=== PATIENT | male | born 1970 | race Caucasian/White ===

== ENCOUNTER 2021-11-18 11:04 | Emergency (ER) | payer SELFPAY | END 2021-11-18 13:10 | disposition home or self-care (01) | LOC: MADERS 11:04 | DX: M25.551 Pain in right hip (principal); G89.29 Other chronic pain; R01.1 Cardiac murmur, unspecified; F17.200 Nicotine dependence, unspecified, uncomplicated ==

== ENCOUNTER 2022-02-12 20:22 | Emergency (ER) | payer OTHER, BC ==
[~2022-02-12 20:22] MED LIST: Iopamidol 370 76% 100 ML VIAL ONE
[2022-02-12 20:55] LABS: #Basophils 0.2 thou/uL (0.0-0.2); #Eosinphils 0.5 thou/uL (0.0-0.7); #Neutrophils 5.1 thou/uL (1.40-6.50); %Eosinophils 5.4 % (0.0-10.0); %Lymphocytes 30.6 % (21.0-51.0); %Monocytes 10.1 % (0.0-10.0); Hemoglobin 11.4 g/dL (14.0-18.0); Mean Corpuscular Hemoglobin 33.9 pg (27.0-31.0); Mean Corpuscular Volume 99.7 fL (78.0-98.0); Mean Platelet Volume 7.6 fL (7.4-10.4); Platelet Count 180 thou/uL (130-400); RBC Distribution Width 12.9 % (11.5-14.5); Red Blood Cell (RBC) Count 3.36 mill/uL (4.70-6.10); White Blood Cell (WBC) Count 9.7 thou/uL (4.8-10.8)
[2022-02-12 21:10] LABS: Alcohol 295 mg/dL (Less than 10); Anion Gap 17 mmol/L (10-20); BUN (Urea Nitrogen) 18 mg/dL (8.4-25.7); Calc. Creatinine Clearance 0 mL/min (70-130); Calcium 10.1 mg/dL (7.8-10.44); Carbon Dioxide 24 mmol/L (22-29); Chloride 109 mmol/L (98-107); Estimated GFR 59; Glucose 128 mg/dL (70-105); Potassium 4.3 mmol/L (3.5-5.1); Sodium 146 mmol/L (136-145)
[2022-02-12] MEDS ORDERED: Boostrix 0.5 ML (Tdap) VIAL ONE (21:52)
== END 2022-02-12 22:12 | disposition home or self-care (01) ==
LOC: MADERS 20:22
DX: S43.402A Unspecified sprain of left shoulder joint, initial encounter (principal); S46.912A Strain of unspecified muscle, fascia and tendon at shoulder and upper arm level, left arm, initial encounter; S61.212A Laceration without foreign body of right middle finger without damage to nail, initial encounter; S00.03XA Contusion of scalp, initial encounter; S40.012A Contusion of left shoulder, initial encounter; S80.812A Abrasion, left lower leg, initial encounter; F10.129 Alcohol abuse with intoxication, unspecified; F17.210 Nicotine dependence, cigarettes, uncomplicated; V89.2XXA Person injured in unspecified motor-vehicle accident, traffic, initial encounter; W22.10XA Striking against or struck by unspecified automobile airbag, initial encounter; Y92.410 Unspecified street and highway as the place of occurrence of the external cause; Y90.8 Blood alcohol level of 240 mg/100 ml or more
CPT/HCPCS: 70450; 71260; 72125; 74177; 80048; 80307; 85025; 90715; G0390; Q9967

== ENCOUNTER 2024-02-02 09:31 | Emergency (ER) | payer OTHER, SELFPAY | END 2024-02-02 10:16 | disposition left against medical advice (07) | LOC: MADERS 09:31 | DX: F29 Unspecified psychosis not due to a substance or known physiological condition (principal); F17.210 Nicotine dependence, cigarettes, uncomplicated; Z55.6 Problems related to health literacy | CPT/HCPCS: 70450 ==